=== PATIENT | male | born 1945 | race Caucasian/White ===

== ENCOUNTER 2023-12-09 13:55 | Observation (INO) | payer MEDICARE, SELFPAY ==
[2023-12-09] VITALS (21 sets, daily range): BP systolic 133–190; BP diastolic 65–88; PULSE 78–92; RESP 13–20; TEMP 36.2–36.9; O2SAT 95–100; BMI 25.3
--- NOTE | ~2023-12-09 | XR_ITS ---
EXAMINATION: XR chest 1V portable DATE: 12/09/2023 17:21 INDICATION: Dizziness. Hypertension. TECHNIQUE: A single frontal view of the chest was obtained. COMPARISON: None. FINDINGS: There is no pneumonia, pleural effusion, or pneumothorax. The heart size is normal. IMPRESSION: 1. No acute cardiopulmonary disease. Reviewed, dictated and finalized at location A.
--- NOTE | ~2023-12-09 | CT_ITS ---
EXAMINATION: CT BRAIN W/O DATE: 12/09/2023 14:21 INDICATION: Dizziness. Blurred vision. TECHNIQUE: Computed tomography (CT) of the head was performed without intravenous contrast. The dose- length product was 681.00 mGy-cm. Automated exposure control and iterative reconstruction technique w ere employed. COMPARISON: No prior studies for comparison. FINDINGS: Mild generalized atrophy. There are scattered mild periventricular and subcortical white ma tter changes, most likely related to small vessel ischemic disease (microangiopathy). There is intrac ranial atherosclerosis. No ventriculomegaly or midline shift. Midline sagittal images demonstrate a normal corpus callosum, c raniovertebral junction and sella turcica. Basilar cisterns are patent. There is mucosal thickening of the maxillary, ethmoid and left sphenoid sinuses. Small right mastoid effusion. Left mastoid air cells are pneumatized. No depressed skull fractures. IMPRESSION: 1. No acute intracranial abnormality. 2: Mild sinus disease. 3: Chronic age-related findings. Reviewed, dictated and finalized at location A.
--- NOTE | ~2023-12-09 | US_ITS ---
EXAMINATION: US carotid duplex BI DATE: 12/10/2023 09:53 INDICATION: Transient ischemic episode with subjective visual disturbance and dizziness. TECHNIQUE: Grayscale, color Doppler, and pulsed Doppler images of the cervical carotid arteries were obtained. The degree of vessel stenosis is placed in one of the following categories: normal, <50%, 5 0-69%, >=70% but less than near-occlusion, near-occlusion, or total occlusion. Note that percent sten osis relative to normal distal artery lumen diameter is indirectly measured from velocity measurement s as described by Mike, et al. Radiology 2003; 229:340-346. COMPARISON: None. FINDINGS: RIGHT: The right common carotid artery (CCA) peak systolic velocity (PSV) is 110 cm/s. The right internal ca rotid artery (ICA) PSV is 101 cm/s. The right ICA end-diastolic velocity (EDV) is 24 cm/s. The right ICA/CCA PSV ratio is 0.9. Grayscale and color Doppler images yield an estimate of <50% diameter reduc tion from plaque in the ICA. The external carotid artery (ECA) PSV is 174 cm/s. Right vertebral arter y is not identified on color Doppler. LEFT: The left CCA PSV is 68 cm/s. The left ICA PSV is >500 cm/s. The left ICA EDV is 139 cm/s. The left IC A/CCA PSV ratio is >7. Grayscale and color Doppler images yield an estimate of >=70% (but less than n ear occlusion) diameter reduction from plaque in the ICA. The ECA PSV is 107 cm/s. There is antegrade flow in the left vertebral artery. IMPRESSION: 1. <50% stenosis in the right internal carotid artery. 2. >=70% (but less than near occlusion) stenosis in the left internal carotid artery. 3. Right vertebral artery not identified suggesting it is either diminutive or occluded. Reviewed, dictated and finalized at location B. IMPRESSION: 1. <50% stenosis in the right internal carotid artery. 2. >=70% (but less than near occlusion) stenosis in the left internal carotid a rtery. 3. Right vertebral artery not identified suggesting it is either diminutive or occluded.
--- NOTE | ~2023-12-09 | MR_ITS ---
EXAMINATION: MR brain/brain stem wo/w con DATE: 12/10/2023 09:13 INDICATION: Transient ischemic attack. Dizziness. TECHNIQUE: Magnetic resonance imaging (MRI) of the brain and brainstem was performed without with 15 mL MultiHance intravenous contrast. COMPARISON: Head CT 12/09/2023 FINDINGS: There are scattered areas of nonspecific increased T2-weighted signal intensity in the cere bral white matter and zina. There is an old infarct in the left thalamus. There is no intracranial he morrhage, acute infarction, or abnormal intracranial mass lesion. The ventricles are normal in size. There is mild mucosal thickening in the paranasal sinuses. The orbits are normal. There is a trace ri ght mastoid effusion. IMPRESSION: 1. Old lacunar infarct in the left thalamus. 2. Mild nonspecific cerebral white matter disease and pontine disease, which likely represents chroni c small vessel ischemic disease. Reviewed, dictated and finalized at location A. IMPRESSION: 1. Old lacunar infarct in the left thalamus. 2. Mild nonspecific cerebral white matter disease and pontine disease, which marcela marrero represents chronic small vessel ischemic disease.
--- NOTE | ~2023-12-09 | CT_ITS ---
EXAMINATION: CTA brain carotid DATE: 12/11/2023 13:31 INDICATION: Dizziness. TECHNIQUE: Computed tomographic angiography (CTA) of the head was performed without and with 100 mL O [id number] intravenous contrast. CTA of the neck was performed with intravenous contrast. Automated exposure control and iterative reconstruction technique were employed. The dose-length product was 1 662.11 mGy-cm. Maximum intensity projection and volume rendered 3D-reconstructions were created by yolanda duff technologist on a separate workstation. COMPARISON: Head CT 12/09/2023 FINDINGS: HEAD CTA: There is no intracranial hemorrhage, acute infarction, or abnormal intracranial mass lesion . There are scattered areas of low attenuation in the cerebral white matter, which is within normal l imits for the patient's age. The ventricles are normal in size. There is mucosal thickening in the pa ranasal sinuses. The orbits are normal. The mastoid air cells are normal. Left vertebral artery is do minant. There is moderate stenosis of intracranial right vertebral artery. There is no significant st enosis of basilar artery or the posterior cerebral arteries. The posterior communicating arteries are normal. There is no significant stenosis of the intracranial internal carotid arteries or anterior o r middle cerebral arteries. Anterior communicating artery is normal. There is no aneurysm. NECK CTA: There is mild emphysema. There is mild scarring at the lung apices. There is an 11 mm nodul e in left thyroid lobe, likely not clinically significant. There are no pathologically enlarged lymph nodes. There is plaque in the proximal internal carotid arteries. There is 10% stenosis of the proxi mal right internal carotid artery relative to normal distal artery lumen diameter (NASCET criteria). There is 16% stenosis of the proximal left internal carotid artery relative to normal distal artery l umen diameter. There is severe cervical spondylosis. IMPRESSION: 1. Normal brain. 2. 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 3. 10% stenosis of the proximal right internal carotid artery relative to normal distal artery lumen diameter (NASCET criteria). 4. 16% stenosis of the proximal left internal carotid artery relative to normal distal artery lumen d iameter. Reviewed, dictated and finalized at location A. IMPRESSION: 1. Normal brain. 2. 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 3. 10% stenosis of the proximal right internal carotid artery relative to meka l distal artery lumen diameter (NASCET criteria). 4. 16% stenosis of the proximal left internal carotid artery relative to normal distal artery lumen diameter.
--- NOTE | 2023-12-09 15:03 | ED.NEUROSD ---
HPI - Neuro Symptoms/Deficit General Chief Complaint: Neuro Symptoms/Deficit Stated Complaint: dizzy/vision changes Time Seen by Provider: 12/09/23 15:09 Focused HPI: Prakash is a 78-year-old male patient presenting to the emergency room today with complaints of dizziness and blurry vision since Thursday. He reports he feels unsteady on his feet. He denies any shortness of breath, headache, or chest pain. No history of diabetes. States he normally wears glasses when he is reading but otherwise does not need glasses to see. Last eye exam was 1 year ago. General: Well-developed, well nourished, in no apparent distress Head: Normocephalic, atraumatic Eyes: Pupils equally round and reactive to light bilaterally, EOM intact, sclera and conjunctive clear, no discharge, lids normal Ears: TMs intact and clear, ear canals clear, no drainage, grossly hearing normal. Nose: Nares patent, no discharge, no inflammation, no sinus tenderness. Mouth: Oropharynx without lesions or masses, good dentition, MMM. Tongue midline, even rise and fall of uvula Neck: Supple, trachea midline, no enlargement of anterior or posterior cervical nodes, no thyroid masses or goiter palpable. Cardio: Regular rate and rhythm, s1 and s2 normal, no murmur appreciated. Resp: Clear to auscultation bilaterally anteriorly and posteriorly, no rhonchi, rales, wheezing or rubs Musculoskeletal: No deformity, non-tender to palpation, grossly normal range of motion, muscle strength strong and equal, peripheral pulse strong, no edema, no cyanosis, normal gait and station Neuro: Alert and oriented x4 with normal speech, no focal deficits, cranial nerves I through XII intact, muscle strength 5 out of 5, sensation intact bilaterally Patient screened in triage and initial orders placed. Additional care and disposition to be based upon diagnostic testing and treatment. Source: patient Mode of arrival: ambulatory Limitations: no limitations Related Data Home Medications Medication Instructions Recorded Confirmed alprazolam 0.25 mg tablet 0.25 mg PO DAILY 12/09/23 12/09/23 amlodipine 10 mg tablet 10 mg PO DAILY 12/09/23 12/09/23 aspirin 81 mg PO DAILY 12/09/23 12/09/23 hydrocodone 5 mg-acetaminophen 325 1 tablet PO DAILY PRN Pain 12/09/23 12/09/23 mg tablet pravastatin 20 mg tablet 20 mg PO DAILY 12/09/23 12/09/23 tamsulosin 0.4 mg capsule 0.4 mg PO DAILY 12/09/23 12/09/23 zolpidem 5 mg tablet 5 mg PO HS 12/09/23 12/09/23 Allergies Allergy/AdvReac Type Severity Reaction Status Date / Time No Known Allergies Allergy Verified 12/09/23 23:46 [facility] Social History Social History Smoking packs per day: 1 Smoking cigarettes per day: 20.0 Years smoked: 56 Smoking pack-years: 56.00 Smoking status: Former smoker Tobacco type: cigarettes Smoking end date: 05/12/17 Alcohol intake: never Substance use: never Do You Feel Safe in your Home?: Yes Lack of Transportation: No Lack of Food: Never True Current Housing: I Have Housing Concerned About Future Housing: No Difficulty Paying Gas/Electric Bills: No Difficulty Paying for Meds: No Currently Unemployed: No Education: Bachelor's Degree Difficulty w/ Childcare or Family Care: No Spiritual care concerns: No Comments At the time of my signature, I reviewed and agree with the nursing past medical, surgical, social, and family history. There is no relevant family history pertinent to the patient complaint. Course Course Emergency Course: Portions of this record may have been created with voice recognition software. Vital Signs Vital signs: Vital Signs Temperature 36.2 C L 12/09/23 13:56 Pulse Rate 92 12/09/23 13:56 Respiratory Rate 16 12/09/23 13:56 Blood Pressure 190/88 H 12/09/23 13:56 Pulse Oximetry 99 12/09/23 13:56 Oxygen Delivery Room Air 12/09/23 13:56 Temperature 36.8 C 12/10/23 05:57 Pul
--- NOTE | 2023-12-09 15:11 | ECG_ITS ---
SEE SCANNED COPY FOR CONFIRMED REPORT MTDD
[2023-12-09 15:31] LABS: Basophils Absolute Auto 0.1 K/mm3 (0.0-0.1); Basophils Percent Auto 1.1 % (0.2-1.2); Eosinophils Absolute Auto 0.3 K/mm3 (0-0.3); Eosinophils Percent Auto 3.9 % (0-4.4); Hematocrit 46.3 % (42.0-52.0); Hemoglobin 14.7 g/dL (14.0-18.0); Immature Granulocyte Absolute 0.04 K/mm3 (0.00-0.031); Immature Granulocyte Percent A 0.6 % (0-0.5); Lymphocytes Absolute Auto 1.73 K/mm3 (0.9-3.2); Lymphocytes Percent Auto 24.7 % (18.3-44.2); Mean Corpuscular HGB Conc 31.7 g/dl (32-36); Mean Corpuscular Hemoglobin 29.8 pg (26-34); Mean Corpuscular Volume 93.7 fl (80-100); Mean Platelet Volume 9.4 fl (7.4-10.4); Monocytes Absolute Auto 0.9 K/mm3 (0.1-0.6); Monocytes Percent Auto 12.3 % (2.6-8.5); Neutrophils Percent Auto 57.4 % (45.5-73.1); Platelet Count Result 262 k/mm3 (150-375); Red Blood Count 4.94 M/mm3 (4.6-6.20); Red Cell Distribution Width 13.2 % (11.5-14.5)
--- NOTE | 2023-12-09 15:31 | PC.NURSE ---
Pt refused chest XR.
[2023-12-09 15:41] LABS: Alanine Aminotransferase 20 U/L (6-50); Albumin Level 4.4 g/dL (3.5-5.1); Alkaline Phosphatase 90 U/L (38-126); Anion Gap 6 mmol/L (4-12); Aspartate Amino Transferase 21 U/L (17-59); Bilirubin,Total 0.3 mg/dL (0.2-1.3); Blood Urea Nitrogen 20 mg/dL (9-20); Calcium 9.2 mg/dL (8.4-10.2); Carbon Dioxide 23 mmol/L (22-30); Chloride 109 mmol/L (98-107); Estimated CRCL calculation 57 ml/min; Estimated Glomerular Filt Rate > 60; Glucose 106 mg/dL (65-110); Potassium 4.3 mmol/L (3.4-5.0); Sodium 138 mmol/L (137-145)
[2023-12-09 15:46] LABS: Partial Thromboplastin Time 30.5 Seconds (22.3-36.8)
[2023-12-09 15:52] LABS: Troponin I < 0.012 ng/mL (0.000-0.034)
[2023-12-09 16:44] LABS: Prothrombin Time 13.8 Seconds (11.1-14.7)
--- NOTE | 2023-12-09 16:58 | PC.NURSE ---
Sitting on side of bed reading a book.
--- NOTE | 2023-12-09 16:59 | ED.GENADULT ---
HPI - General Adult General Chief complaint: Neuro Symptoms/Deficit Stated complaint: dizzy/vision changes Time Seen by Provider: 12/09/23 15:09 Source: patient Mode of arrival: ambulatory Limitations: no limitations History of Present Illness HPI narrative: 78 years old white male drove himself to the emergency room complaining of spells of dizziness with blurry vision and unsteady gait last up to 20 minutes each time, started 2 days ago and last night and around 11 30 today. Patient went to urgent care, then referred to our emergency room. Currently patient is asymptomatic. He denies any fever, chills, nausea, vomiting, shortness of breath, chest pain, headache or focal neuro deficit. History of hypertension, hyperlipidemia currently on baby aspirin once a day, does not smoke or drink, lives alone, had no family. I Related Data Allergies Allergy/AdvReac Type Severity Reaction Status Date / Time No Known Allergies Allergy Unverified 07/27/18 15:28 Review of Systems Review of Systems: All systems reviewed & are unremarkable except as noted in HPI and below Exam Narrative: General appearance: Well-developed, well-nourished Skin: Normal color Head: Normocephalic, nontraumatic Eyes: Clear conjunctiva ENT: Oropharynx normal, ears normal, nose normal Neck: Supple, nontender Chest and respiratory: Airway patent, no respiratory distress, no accessory muscle use Heart: Regular rate/rhythm Abdomen: Soft, nontender, no organomegaly, quiet bowel sounds Vascular: Normal peripheral pulses, normal capillary refill. Musculoskeletal: Normal range of motion, nontender back Neurologic: Alert and oriented ?3, [place] is normal as tested, no gross motor deficit Course Reevaluation(s) Reevaluation #1: Asymptomatic Date: 12/09/23 Time: 17:03 Vital Signs Vital signs: Vital Signs Temperature 36.2 C L 12/09/23 13:56 Pulse Rate 92 12/09/23 13:56 Respiratory Rate 16 12/09/23 13:56 Blood Pressure 190/88 H 12/09/23 13:56 Pulse Oximetry 99 12/09/23 13:56 Oxygen Delivery Room Air 12/09/23 13:56 Temperature 36.2 C L 12/09/23 13:56 Pulse Rate 92 12/09/23 13:56 Respiratory Rate 16 12/09/23 13:56 Blood Pressure 157/75 H 12/09/23 16:46 Pulse Oximetry 97 12/09/23 16:46 Oxygen Delivery Room Air 12/09/23 13:56 Medical Decision Making MDM Narrative Medical decision making narrative: Patient came with episodic dizziness, blurry vision and loss of balance. Differential diagnosis: Cardiac arrhythmia, TIA, anxiety like symptoms, electrolyte imbalance, dehydration Blood workup today showed no acute abnormalities CT head showed no acute abnormalities, EKG on arrival showed normal sinus rhythm with possible old septal infarction, old EKG available for comparison. Patient to be admitted for further evaluation including brain MRI, with and without, 2D echo, carotid Doppler,. Patient currently on baby aspirin, adult dose of aspirin given to the patient in the ER. Differential Diagnosis Differential Diagnosis: As above Medical Records Medical records reviewed: Yes I reviewed the external patient's medical records. Vital Signs Vital Signs: Vital Signs Temperature 36.2 C L 12/09/23 13:56 Pulse Rate 92 12/09/23 13:56 Respiratory Rate 16 12/09/23 13:56 Blood Pressure 190/88 H 12/09/23 13:56 Pulse Oximetry 99 12/09/23 13:56 Oxygen Delivery Room Air 12/09/23 13:56 Temperature 36.2 C L 12/09/23 13:56 Pulse Rate 92 12/09/23 13:56 Respiratory Rate 16 12/09/23 13:56 Blood Pressure 157/75 H 12/09/23 16:46 Pulse Oximetry 97 12/09/23 16:46 Oxygen Delivery Room Air 12/09/23 13:56 Lab Data
[2023-12-09] MEDS: ASPIRIN 81 MG CHEWABLE TABLET 324 MG PO (17:06)
--- NOTE | 2023-12-09 17:47 | PC.NURSE ---
heart healthy tray ordered at this time
--- NOTE | 2023-12-09 20:31 | PM.IMHP ---
H&P: HPI History of Present Illness Date/Time: 12/09/23 20:31 Chief Complaint: dizziness Narrative: This is a 78-year-old male with past medical history significant for benign prostatic hyperplasia, hypertension. patient presents to the emergency room after having 2 spells of dizziness and blurry vision on 1 instance patient was sitting playing a board game when he felt dizzy and dilators became blurry under 2nd instance patient was playing goals when he felt dizzy and had blurry vision as well, denies nausea vomiting chest pain palpitations abdominal pain shortness of breath cough, has been his usual state of health, no fevers no rigors no chills no focal sensorimotor deficit. Preliminary workup here has been irrelevant. Patient has been placed in observation for further evaluation management and treatment. EXAMINATION: CT BRAIN W/O DATE: 12/09/2023 14:21 INDICATION: Dizziness. Blurred vision. TECHNIQUE: Computed tomography (CT) of the head was performed without intravenous contrast. The dose-length product was 681.00 mGy-cm. Automated exposure control and iterative reconstruction technique were employed. COMPARISON: No prior studies for comparison. FINDINGS: Mild generalized atrophy. There are scattered mild periventricular and subcortical white matter changes, most likely related to small vessel ischemic disease (microangiopathy). There is intracranial atherosclerosis. No ventriculomegaly or midline shift. Midline sagittal images demonstrate a normal corpus callosum, craniovertebral junction and sella turcica. Basilar cisterns are patent. There is mucosal thickening of the maxillary, ethmoid and left sphenoid sinuses. Small right mastoid effusion. Left mastoid air cells are pneumatized. No depressed skull fractures. IMPRESSION: 1. No acute intracranial abnormality. 2: Mild sinus disease. 3: Chronic age-related findings. EXAMINATION: XR chest 1V portable DATE: 12/09/2023 17:21 INDICATION: Dizziness. Hypertension. TECHNIQUE: A single frontal view of the chest was obtained. COMPARISON: None. FINDINGS: There is no pneumonia, pleural effusion, or pneumothorax. The heart size is normal. IMPRESSION: 1. No acute cardiopulmonary disease. Review of Systems Review of Systems: dizziness, blurry vision Constitutional: Constitutional: Denies chills, Denies fatigue, Denies fever(s), Denies malaise, Denies night sweats, Denies poor appetite and Denies weakness Eyes: Eyes: Reports blurry vision, Reports change in vision and Reports diplopia ENT: Denies dysphagia, Denies vertigo, Reports dizziness, Denies nasal congestion, Denies nasal discharge, Denies neck pain, Denies nose pain and Denies odynophagia Cardiovascular: Cardiovascular: Denies chest pain, Denies leg edema, Denies radiating jaw, neck or arm pain and Denies palpitations Respiratory: Respiratory: Denies cough and Denies dyspnea Gastrointestinal: Gastrointestinal: Denies abdominal pain, Denies nausea and Denies vomiting Genitourinary: Genitourinary: Denies dysuria Musculoskeletal: Musculoskeletal: Denies back pain and Denies myalgias Integumentary/Breasts: Skin/Breast: Denies rash Neurologic: Denies vertigo, Denies dizziness, Denies focal weakness, Denies Sensory deficit (Neuro) and Reports disequilibrium Psychiatric: Psychiatric: Reports no additional psychiatric complaints and Reports as per HPI Endocrine: Endocrine: Denies cold intolerance, Denies fatigue, Denies flushing, Denies heat intolerance, Denies polyphagia, Denies polydipsia, Denies polyuria and Denies palpitations Hematologic/Lymphatic: Hematologic/Lymphatic: Reports no additional hematologic/lymphatic complaints and Reports as per HPI Allergic/Immunologic: Allergic/Immunologic: Reports no additional allergic/immunologic complaints and Reports as per HPI PMFSH Social History Social History Smoking packs per day: 1 Smoking cigar
[2023-12-09 21:31] LABS: Appearance Urine Clear (Clear); Bilirubin Urine Negative (Negative); Blood Urine Negative (Negative); Color Urine Yellow (Yellow); Glucose Urine UA Negative (Negative); Ketones Urine Negative (Negative); Leukocyte Esterase Ur Negative LEU/UL (Negative); Nitrate Urine Negative (Negative); Protein Urine Negative (Negative); Specific Grav Ur 1.015 (1.001-1.035); pH Urine 5.5 (5.0-9.0)
[2023-12-09 21:47] LABS: Add Urine Microscopic? NO
--- NOTE | 2023-12-09 22:31 | PC.NURSE ---
Called to give report and was told to wait 5-10 minutes for a call back because the nurse was unaware of patient coming.
--- NOTE | 2023-12-09 23:31 | ADMGEN ---
This patient, Prakash Bates, was admitted to 3 [facility] Surg Room 323-02. Patient/family oriented to hospital policies and general routines including ID bracelet, bed and alarms, visiting hours, pain management, procedures, bathroom and other care routines, personal items, smoking policy, room service/diet, and visiting hours. Information on how to activate the Rapid Response Team has been discussed. Patient/Family are encouraged to report perceived risks to care and to ask questions if they do not understand what they are told or what they should do.
[2023-12-10] VITALS (10 sets, daily range): BP systolic 127–156; BP diastolic 61–74; PULSE 65–94; RESP 13–18; TEMP 36.7–37.1; O2SAT 95–97
--- NOTE | 2023-12-10 07:00 | ECHO_ITS ---
Patient Info Name: Prakash Bates Age: 78 years : 1945 Gender: Male Ht: 68 in Wt: 160 lbs BSA: 1.87 m2 HR: 74 bpm BP: 127 / 74 mmHg Heart Rhythm: Sinus Rhythm Technical Quality: Good Exam Date: 12/10/2023 11:03 AM Exam Location: Echo Lab Patient Status: Outpatient Admit Date: 12/09/2023 Staff Ordering Physician: Katherine Romero MD [employer] Legal Advisor: Aleksandra Tran RDCS Attending Provider: Doug Mahan MD Exam Type: CA echo doppler color flow Study Info Indications - cardiac arrythmia Complete two-dimensional, color flow and Doppler transthoracic echocardiogram is performed. Summary 1. Left ventricular chamber dimension is normal. 2. Left ventricular systolic function is normal, estimated at 65-70%. 3. There is mildly increased left ventricular wall thickness. 4. The left ventricular diastolic function is grade I diastolic dysfunction. 5. Right ventricular systolic function is normal. 6. There is mild tricuspid valve regurgitation. Left Ventricle Left ventricular chamber dimension is normal. Left ventricular systolic function is normal, estimated at 65-70%. There is mildly increased left ventricular wall thickness. The left ventricular diastolic function is grade I diastolic dysfunction. Right Ventricle Right ventricular chamber dimension is normal. Right ventricular systolic function is normal. Left Atria Left atrial chamber dimension is normal. Right Atria Right atrial chamber dimension is normal. Atrial Septum Intact interatrial septum visualized by color flow imaging. Aortic Valve The aortic valve is probable trileaflet. There is no aortic valve stenosis. There is no aortic valve regurgitation. There is mild aortic valve calcification. Pulmonic Valve The pulmonic valve is not well visualized. Mitral Valve There is trace mitral valve regurgitation. Tricuspid Valve There is mild tricuspid valve regurgitation. Pericardium/Pleural The pericardium appears epicardial fat pad. There is no pericardial effusion. Inferior Vena Cava Normal inferior vena cava with >50% collapse upon inspiration consistent with normal right atrial pressure, 3 mmHg. Aorta The aortic root size at the sinus of Valsalva is normal. Left Ventricular Outflow Tract Name Value Normal LVOT 2D LVOT Diameter 2.1 cm LVOT Doppler LVOT Peak Gradient 5 mmHg LVOT Mean Gradient 3 mmHg LVOT VTI 25 cm LVOT VTI/AV VTI Ratio 0.8 LVOT Stroke Volume 87 ml LVOT CO 7.2 l/min LVOT CI 3.8 l/min/m2 Pulmonic Valve Name Value Normal RVOT Doppler RVOT Peak Gradient 2 mmHg PV Doppler PV Peak Gradient 2 mmHg Mitral Valve ---------
--- NOTE | 2023-12-10 08:35 | PC.NURSE ---
Pt transported to MRI with facilities maintenance technician via wheelchair.
--- NOTE | 2023-12-10 09:56 | PM.IMPN ---
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 Carotid Dopplers showing greater than 70% stenosis in the left ICA, less than 50% stenosis in right ICA. Neurology was consulted and is following Troponin is negative Sodium level 138, potassium 4.3, hemoglobin 14.7, white blood cell count 7.0 UA was negative Echo today showed will LV function with an estimated EF of 65-70%, grade 1 diastolic dysfunction Continue cardiac monitoring Initial blood pressure was 190/88, now ranging 127/74 to 135/71 Continue amlodipine 10 mg daily We will go ahead and add hydralazine 12.5 mg daily as well for better blood pressure control Time Spent With Patient Time with patient: 25 - 35 minutes Subjective Date/time seen: 12/10/23 09:56 Interval history: This is a 78-year-old female a significant past medical history of hypertension, hyperlipidemia, 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 Patient states that he started feeling dizzy with blurred vision on Thursday which lasted about 20 minutes duration. Then on Thursday he started getting dizzy again with blurred vision which lasted for about 10 minutes. On Thursday he reported dizziness again with double vision when he was out playing golf. He denies any fever, chills, congestion, headache, nausea, vomiting, diarrhea, abdominal pain, chest pain, shortness a breath. He endorses feeling lightheaded and dizzy with blurred vision/double vision for the past 3 days. On examination today patient denies any blurred vision or dizziness. Workup in the hospital included a head CT which was negative for any acute intracranial abnormality, mild sinus disease, chronic age-related changes. Chest x-ray was negative. Brain MRI showing old lacunar infarct in the left thalamus, mild nonspecific cerebral white matter disease and pontine disease. Carotid Dopplers shown greater than 70% stenosis in the left ICA, less than 50% stenosis in the right ICA diminutive verses occluded right vertebral artery. Echo was performed which showed normal LV systolic function with an estimated EF of 65-70%, grade 1 diastolic dysfunction. Initial labs essentially unremarkable, troponin was negative. UA was negative. His initial blood pressure was elevated at 190/88 when he first presented to the hospital. Patient is currently on amlodipine 10 mg daily for his blood pressure. His blood pressures are ranging 127/74 to 135/71, we will continue to monitor. Patient was given aspirin in the ED. Neurology consulted and is following. Review of Systems Review of Systems: All systems reviewed & are unremarkable except as noted in HPI and below Constitutional: Constitutional: Reports as per HPI and Reports no additional constitutional complaints Eyes: Eyes: Reports as per HPI and Reports no additional eye complaints ENT: Reports system reviewed and no additional complaints, except as documented and Reports as per HPI Cardiovascular: Cardiovascular: Reports as per HPI and Reports no additional cardiovascular complaints Respiratory: Respiratory: Reports as per HPI and Reports no additional respiratory complaints Gastrointestinal: Gastrointestinal: Reports as per HPI and Reports no additional gastrointestinal complaints Genitourinary: Genitourinary: Reports no additional male genitourinary complaints and Reports as per HPI Musculoskeletal: Musculoskeletal: Reports no additional musculoskeletal complaints and Reports as per HPI Integumentary/Breasts: Skin/Breast: Reports system rev
[2023-12-10] MEDS: ASPIRIN 81 MG CHEWABLE TABLET PO (10:18)
[2023-12-10] MEDS: ALPRAZolam (*CRX) 0.25 MG TABLET PO (10:18)
[2023-12-10] MEDS: amLODIPine BESYLATE 5 MG TABLET 10 MG PO (10:18)
[2023-12-10] MEDS: PRAVASTATIN SODIUM 20 MG TABLET PO (10:19)
--- NOTE | 2023-12-10 10:45 | WPDNEURCNPN ---
Assessment and Plan Assessment and plan (1) Episode of dizziness: Code(s): R42 - Dizziness and giddiness Status: Acute (2) Hypertension: Code(s): I10 - Essential (primary) hypertension Status: Acute Plan Mr. Bates is a 78 year old male with a history of HTN presenting with transient episodes of dizziness and blurred vision. He was quite hypertensive on presentation, which could have been the etiology. I think less likely related to the carotid doppler findings, but will investigate further with CTA brain/carotid. MRI brain was negative for stroke. - Obtain CTA brain/carotid - Obtain surface echo with bubble study - Continue aspirin 81mg daily Consult date: 12/10/23 Reason for consult: Dizziness HPI: Prakash Bates is a 78 year old male with a history of HTN and HLD presenting for evaluation of dizziness. Patient presented after having two spells of dizziness and blurry vision. He did not have any focal defecits at the time of the episodes. CT head done in the ER did not show any acute changes. Carotid Doppler showed <50% stenosis of the R ICA and >70% but less than near occlusion of the L ICA, and diminutive vs occluded R vertebral artery. His BP on presentation was 190/88. MRI brain is negative for acute infarct. Review of Systems Review of Systems: All systems reviewed & are unremarkable except as noted in HPI and below PMFSH Social History Social History Smoking packs per day: 1 Smoking cigarettes per day: 20.0 Years smoked: 56 Smoking pack-years: 56.00 Smoking status: Former smoker Tobacco type: cigarettes Smoking end date: 05/12/17 Alcohol intake: never Substance use: never Do You Feel Safe in your Home?: Yes Lack of Transportation: No Lack of Food: Never True Current Housing: I Have Housing Concerned About Future Housing: No Difficulty Paying Gas/Electric Bills: No Difficulty Paying for Meds: No Currently Unemployed: No Education: Bachelor's Degree Difficulty w/ Childcare or Family Care: No Spiritual care concerns: No Meds Home Medications and Allergies Home Medications Medication Instructions Recorded Confirmed Type alprazolam 0.25 mg tablet 0.25 mg PO DAILY 12/09/23 12/09/23 History amlodipine 10 mg tablet 10 mg PO DAILY 12/09/23 12/09/23 History aspirin 81 mg PO DAILY 12/09/23 12/09/23 History hydrocodone 5 mg-acetaminophen 325 1 tablet PO DAILY PRN Pain 12/09/23 12/09/23 History mg tablet pravastatin 20 mg tablet 20 mg PO DAILY 12/09/23 12/09/23 History tamsulosin 0.4 mg capsule 0.4 mg PO DAILY 12/09/23 12/09/23 History zolpidem 5 mg tablet 5 mg PO HS 12/09/23 12/09/23 History Allergies Allergy/AdvReac Type Severity Reaction Status Date / Time No Known Allergies Allergy Verified 12/09/23 23:46 Vital Signs Vital Signs - 24 hr 12/09/23 13:56 12/09/23 16:08 12/09/23 16:09 Temperature 36.2 C L Pulse Rate 92 Respiratory Rate 16 Blood Pressure 190/88 H 158/79 H Pulse Oximetry 99 97 100 Oxygen Delivery Room Air 12/09/23 16:15 12/09/23 16:16 12/09/23 16:30 Temperature Pulse Rate Respiratory Rate Blood Pressure 153/77 H Pulse Oximetry 98 98 97 Oxygen Delivery 12/09/23 16:31 12/09/23 16:45 12/09/23 16:46 Temperature Pulse Rate Respiratory Rate Blood Pressure 136/78 157/75 H Pulse Oximetry 97 98 97 Oxygen Delivery 12/09/23 17:50 12/09/23 16:47 12/09/23 17:08 Temperature Pulse Rate 79 89 Respiratory Rate 20 Blood Pressure Pulse Oximetry 100 96 Oxygen Delivery 12/09/23 17:15 12/09/23 17:48 12/09/23 18:37 Temperature Pulse Rate 84 78 82 Respiratory Rate 18 13 19 Blood Pressure 145/74 H Pulse Oximetry 99 98 97 Oxygen Delivery 12/09/23 18:45 12/09/23 18:46 12/09/23 19:52 Temperature Pulse Rate 80 78 80 Respiratory Rate 17 18 16 Blood Pressure 150/71 H 133/88 Pulse Ox
--- NOTE | 2023-12-10 14:15 | PCCCNOTE ---
On 12/10/23, the student, [Sidra Potts], provided care and completed [facility] documentation on this patient. I have reviewed the student's documentation and agree with the findings.
--- NOTE | 2023-12-10 14:18 | PCCCNOTE ---
On 12/10/23, the student, [Sidra Potts], provided care and completed [facility] documentation on this patient. I have reviewed the student's documentation and agree with the findings.
[2023-12-10] MEDS: HYDROcodone/acetaminophen (*CRX) 5-325 MG TABLET 1 TAB PO (18:16)
[2023-12-10] MEDS: hydrALAZINE 12.5 MG TABLET PO (18:30)
[2023-12-10 20:03] LABS: Glucose Point of Care 94 mg/dl (65-105)
[2023-12-10] MEDS: ZOLPIDEM TARTRATE (*CRX) 5 MG TABLET PO (21:42)
[2023-12-11] VITALS: PULSE 66
[2023-12-11 04:00] VITALS: PULSE 66
[2023-12-11 06:00] VITALS: BP 135/62; PULSE 66; RESP 14; TEMP 36.2; O2SAT 97
[2023-12-11 08:00] VITALS: PULSE 73
[2023-12-11] MEDS: ASPIRIN 81 MG CHEWABLE TABLET PO (09:54)
[2023-12-11] MEDS: ALPRAZolam (*CRX) 0.25 MG TABLET PO (09:55)
[2023-12-11] MEDS: hydrALAZINE HCL 25 MG TABLET PO (09:55)
[2023-12-11] MEDS: amLODIPine BESYLATE 5 MG TABLET 10 MG PO (09:55)
[2023-12-11] MEDS: PRAVASTATIN SODIUM 20 MG TABLET PO (09:56)
[2023-12-11 10:04] LABS: Alanine Aminotransferase 18 U/L (6-50); Alkaline Phosphatase 87 U/L (38-126); Anion Gap 6 mmol/L (4-12); Aspartate Amino Transferase 20 U/L (17-59); Bilirubin,Total 0.5 mg/dL (0.2-1.3); Blood Urea Nitrogen 15 mg/dL (9-20); Calcium 9.2 mg/dL (8.4-10.2); Carbon Dioxide 25 mmol/L (22-30); Chloride 107 mmol/L (98-107); Estimated CRCL calculation 51 ml/min; Estimated Glomerular Filt Rate > 60; Glucose 127 mg/dL (65-110); Potassium 3.9 mmol/L (3.4-5.0); Sodium 138 mmol/L (137-145)
[2023-12-11 10:07] LABS: Hematocrit 47.1 % (42.0-52.0); Hemoglobin 14.8 g/dL (14.0-18.0); Mean Corpuscular HGB Conc 31.4 g/dl (32-36); Mean Corpuscular Hemoglobin 29.4 pg (26-34); Mean Corpuscular Volume 93.5 fl (80-100); Mean Platelet Volume 9.5 fl (7.4-10.4); Platelet Count Result 275 k/mm3 (150-375); Red Blood Count 5.04 M/mm3 (4.6-6.20); Red Cell Distribution Width 13.1 % (11.5-14.5); White Blood Count 5.6 K/mm3 (4.5-10.0)
[2023-12-11 12:03] VITALS: PULSE 87
--- NOTE | 2023-12-11 12:08 | PM.DS ---
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 Patient states that he started feeling dizzy with blurred vision on Thursday which lasted about 20 minutes duration.? Then on Thursday he started getting dizzy again with blurred vision which lasted for about 10 minutes.? On Thursday he reported dizziness again with double vision when he was out playing golf.? He denies any fever, chills, congestion, headache, nausea, vomiting, diarrhea, abdominal pain, chest pain, shortness a breath.? He endorses feeling lightheaded and dizzy with blurred vision/double vision for the past 3 days.? On examination today patient denies any blurred vision or dizziness.? Workup in the hospital included a head CT which was negative for any acute intracranial abnormality, mild sinus disease, chronic age-related changes.? Chest x-ray was negative.? Brain MRI showing old lacunar infarct in the left thalamus, mild nonspecific cerebral white matter disease and pontine disease.? Carotid Dopplers shown greater than 70% stenosis in the left ICA, less than 50% stenosis in the right ICA diminutive verses occluded right vertebral artery.? Echo was performed which showed normal LV systolic function with an estimated EF of 65-70%, grade 1 diastolic dysfunction.? Initial labs essentially unremarkable, troponin was negative.? UA was negative.? His initial blood pressure was elevated at 190/88 when he first presented to the hospital.? Patient is currently on amlodipine 10 mg daily for his blood pressure.? His blood pressures are ranging 127/74 to 135/71, we will continue to monitor.? Patient was given aspirin in the ED. ? Neurology consulted and is following.? 11/10/23: Patient denies any new complaints today. His blood pressure was ranging 156/61 to 135/62. His hydralazine was increased to 25 mg b.i.d.. 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 Patient is stable for discharge today. He will need to follow this primary care physician in 1 week for continued blood pressure control. Final diagnosis: Uncontrolled hypertension, dizziness Status at Discharge Cognitive/behavioral status at discharge: Alert oriented x4 Functional status at discharge: independent ambulation Overall status at discharge: patient is progressing back to baseline Time Spent with Patient Time attestation: Total time spent providing and/or coordinating discharge services: Time spent: Greater than 30 minutes Exam Narrative: General: In no acute distress, well nourished Head: atraumatic, no encephalopathy Eyes: EOMI, PERRLA, sclera clear ENT: moist mucous membranes, nasal passages clear Neck: supple, no JVD, no adenopathy, trachea midline Cardiac: Normal S1 and S2. RRR, No murmur, gallops or friction rubs, peripheral pulses intact. Respiratory: Lungs clear to auscultation, no adventitious lung sounds Gastrointestinal: soft, non-distended, non-tender, normoactive bowel sounds. : voiding without difficulty clear yellow urine Extremities: moves all extremities well, no edema, good ROM, strength 5/5 Skin: clean, dry, intact. No wounds or lesions. Neuro: Alert and oriented x4, cranial nerves intact, no neuro deficits. Psych: normal mood, normal affect, interactive DS: Data Data Completed a
[2023-12-11 13:59] VITALS: BP 136/61; PULSE 79; RESP 16; TEMP 36.7; O2SAT 97
== END 2023-12-11 14:40 | disposition home or self-care (01) ==
LOC: ANHED 17:10 → ANH3MEDSUR 12-10 06:47
PROVIDERS: Internal Medicine; Nurse Practitioner Acute Care; Nurse Practitioner Family; Admitting Provider Internal Medicine; Emergency Provider Emergency Medicine; Visit Provider Internal Medicine
DX: R42 Dizziness and giddiness (principal); I65.01 Occlusion and stenosis of right vertebral artery; I65.23 Occlusion and stenosis of bilateral carotid arteries; I11.9 Hypertensive heart disease without heart failure; E78.5 Hyperlipidemia, unspecified; N40.0 Benign prostatic hyperplasia without lower urinary tract symptoms; I07.1 Rheumatic tricuspid insufficiency; R90.82 White matter disease, unspecified; J32.9 Chronic sinusitis, unspecified; Z20.822 Contact with and (suspected) exposure to COVID-19; Z86.73 Personal history of transient ischemic attack (TIA), and cerebral infarction without residual deficits; Z85.89 Personal history of malignant neoplasm of other organs and systems; Z87.891 Personal history of nicotine dependence; Z79.82 Long term (current) use of aspirin; Z79.891 Long term (current) use of opiate analgesic; Z79.899 Other long term (current) drug therapy
CPT/HCPCS: 36415; 70450; 70496; 70498; 70553; 71045; 80053; 81003; 82948; 84484; 85025; 85027; 85610; 85730; 93005; 93306; 93880; 99285; A9270; A9577; G0378; Q9967